=== PATIENT | female | born 1945 | race Caucasian/White ===

== ENCOUNTER 2018-07-20 13:11 | Inpatient (IN) | payer MEDICARE, OTHER ==
[~2018-07-20] VITALS: Ht 167.6 cm; Wt 81.6 kg
--- NOTE | ~2018-07-20 | HEMODYNAMI ---
PATIENT:WENDY RDZ MEDICAL RECORD: [id number] : 43 [facility] [id number] ADMISSION DATE: 07/20/18 Generatedon:07/23/201811:56 Patient name: WENDY RDZ Patient #: [id number] SSN: : 1945 Date of study: 07/23/2018 Page: Of Hemodynamic Procedure Report Patient Data Patient Demographics Procedure consent was obtained First Name: WENDY Gender: Female Last Name: KENDELL : 1945 [facility] Initial: R Age: 73 year(s) Patient #: [id number] Race: Unknown Additional ID: [id number] Contact details [address]: [address] [place] [address] State: [place] City: [place] Zip code: [address] Admission Admission Data Admission Date: 07/20/2018 Admission Time: 14:52 Room #: D.1204 Lab Results Lab Result Date: 07/23/2018 Lab Result Time: 0:00 Biochemistry Name Units Result Min Max BUN mg/dl 21 --(----)-* 7 18 Creatinine mg/dl 0.8 --(-*--)-- 0.6 1.3 CBC Name Units Result Min Max Hemoglobin g/dl 14.3 --(*---)-- 13.5 17.5 Procedure Procedure Types Cath Procedure Diagnostic Procedure [facility] w/Coronaries FFR/IVUS FFR Initial Procedure Description Procedure Date Procedure Date: 07/23/2018 Procedure Start Time: 11:40 Procedure End Time: 11:54 Procedure Staff Name Function Ronaldo Fernandes MD Performing Physician Alisa Bullock RT Monitor Marquita Serrato RT Scrub Ludmila Stoddard RN Nurse Pascual Diaz RT Monitor Procedure Data Cath Procedure Fluoroscopy Diagnostic fluoroscopy Total fluoroscopy Time: 2.7 time: 2.7 min min Diagnostic fluoroscopy Total fluoroscopy dose: 338 dose: 338 mGy mGy Contrast Material Contrast Material Type Amount (ml) Isovue 300 42 Entry Location Entry Primary Successful Side Size Upsize Upsize Entry Closure Garza ccessful Closure Location (Fr) 1 (Fr) 2 (Fr) Remarks Device Remarks Radial Right 6 Fr Mechanical artery Short Compression Diagnostic catheters Device Type Used For End Catheter Placement DIAGNOSTIC Medical Lake 110cm 5 LV Angiography Fr catheter ([id number]) Procedure Complications No complications Procedure Medications Medication Administration Route Dosage 0.9% NaCl I.V. 100 ml/hr Oxygen etCO2 Nasal cannula 2 l/min Lidocaine 2% added to field 20 Heparin Flush Bag added to field 2 bags (1000units/500ml NS) Radial Cocktail added to field 1 syringe (Verapomil 2mg/Nitro 400mcg/Heparin 1500units) Versed I.V. 2 mg Fentanyl I.V. 50 mcg Hemodynamics Rest HGB: 14.3 (g/dl) Snapshots Pre Cath Intra NCS Post Cath Vital Signs Time Heart Resp SPO2 etCO2 NIBP (mmHg) Rhythm Pain Sedation Rate (ipm) (%) (mmHg) Status Level (bpm) 11:24:51 78 15 96 14.2 162/67(112) NSR 0 (11) 10(A) , No pain 11:29:09 76 14 98 18.8 151/72(120) NSR 0 (11) 10(A) , No pain 11:33:27 72 11 97 19.5 148/63(98) NSR 0 (11) 9(A) , No pain 11:37:48 73 11 94 26.2 132/59(88) NSR 0 (11) 9(A) , No pain 11:42:04 71 13 95 30 137/65(100) NSR 0 (11) 9(A) , No pain 11:46:24 71 14 93 27 110/47(80) NSR 0 (11) 9(A) , No pain 11:50:38 73 41 94 18.8 123/50(83) NSR 0 (11) 10(A) , No pain Medications Time Medication Route Dose Verified Delivered Reason Notes E ffectiveness by by 11:23:23 0.9% NaCl I.V. 100 Ronaldo Terrya used for ml/hr Dena Stoddard miter operator 11:23:30 Oxygen etCO2 2 l/min Ronaldo Terrya used for Nasal Dena Stoddard procedure cannula RN 11:23:35 Lidocaine 2% added 20ml Ronaldo Ferrerrey for local to vial Dena Fernandes MD anesthetic field 11:23:40 Heparin Flush added 2 bags Ronaldo Higgins used for Bag to Dena Fernandes MD procedure (1000units/500ml field NS) 11:32:19 Radial Cocktail added 1 Ronaldo Higgins used for (Verapomil to syringe Dena Fernandes MD procedure 2mg/Nitro field 400mcg/Heparin 1500units) 11:32:22 Versed I.V. 2 mg Ronaldo Keys for Dena Stoddard sedation RN 11:32:27 Fentanyl I.V. 50 mcg Ronaldo Keys for Dena Stoddard sedation floor coverings installer Log Time Note 11:00:21 Marquita Serrato RT(R) sent for patient. Start room use. 11:16:30 Time tracking: Regular hours (M-F 7:00 - 5:00) 11:16:34 Plan of Care:Hemodynamics will remain stable., Cardiac rhythm will remain stable., Comfort level will be maintained., Respiratory function will remain adequate., Patient/ family verbilizes understanding of procedure., Procedure tolerated without complication., Recovers from procedure without complications.. 11:16:44 Patient received from Pre/Post Procedure Room to CCL 2 Alert and oriented. Tansferred to table in Supine position. 11:16:45 Warm blankets applied, and juan miguel hugger turned on for patient comfort. 11:16:45 Correct patient and procedure confirmed by team. 11:16:47 Signed procedure consent form obtained from patient. 11:16:48 ECG and BP/O2 sat monitors applied to patient. 11:23:07 Vital chart was started 11:23:08 Baseline sample Acquired. 11:23:15 Rhythm: sinus rhythm 11:23:17 Full Disclosure recording started 11:23:21 H&P Date Dictated: 07/23/2018 Within 30 days and on chart., H&P Addendum completed by physician on day of procedure. (MUST COMPLETE FOR ALL OUTPATIENTS). 11:23:23 0.9% NaCl 100 ml/hr I.V. was administered by Ludmila Stoddard RN; used for procedure; 11:23:26 Pre-procedure instructions explained to patient. 11:23:27 Pre-op teaching completed and patient verbalized understanding. 11:23:28 Family in waiting room. 11:23:30 Oxygen 2 l/min etCO2 Nasal cannula was administered by Ludmila Stoddard RN; used for procedure; 11:23:30 Patient NPO since Midnight. 11:23:32 Is the patient allergic to Iodine/contrast media? No. 11:23:33 Was the patient premedicated? No 11:23:34 Is patient on blood thinner?Yes 11:23:35 Lidocaine 2% 20ml vial added to field was administered by Ronaldo Fernandes MD; for local anesthetic; 11::36 ACC The patient was administered the following blood thiners within the last 24 hours: ACCPlavix 11:23:38 Patient diabetic? No. 11:23:40 Heparin Flush Bag (1000units/500ml NS) 2 bags added to field was administered by Ronaldo Fernandes MD; used for procedure; 11::40 Previous problem with sedation/anesthesia? No ? 11:23:42 Snore? Yes 11:23:43 Sleep apnea? No 11:23:50 Deviated septum? No 11:23:51 Opens mouth fully? Yes 11:23:51 Sticks out tongue? Yes 11:23:57 Airway obstruction? Yes copd asthma 11:24:00 Dentures? No ? 11:24:04 Pre procedure: right dorsailis pedis pulse 2+ Normal; easily identifiable; not easily obliterated 11:24:06 Pre procedure: left dorsailis pedis pulse 2+ Normal; easily identifiable; not easily obliterated 11:24:08 Patient pain scale 0/10 ?. 11:24:44 IV patent on arrival in left forearm with 0.9% NaCl at [facility]. 11:24:47 Lab results completed and on chart. 11:24:53 Right Radial & Right Groin area was prepped with chlora-prep and draped in sterile fashion 11::54 Alarms reviewed by R. N. ::54 Sharps counted by scrub and verified by R.N. 11::34 Lab Result : Hemoglobin 14.3 g/dl ::34 Lab Result : Creatinine 0.8 mg/dl ::34 Lab Result : BUN 21 mg/dl 11::36 Physician arrived ::36 --------ALL STOP TIME OUT------ 11:31:37 Final Timeout: patient, procedure, and site verified with staff and physician. All members of the team are in agreement. 11:31:43 Right Radial & Right Groin site verified by team. 11:31:51 Maximum allowable Isovue 300 dose 300ml. Physician notified. (300ml for normal creatinines. For patients with creatinine of 1.7 or higher multiply weight(kg) x 5 divided by creatinine.) 11:32:02 Fire Safety Assessment: A--An alcohol-based skin anteseptic being used preoperatively., C--Open oxygen or nitrous oxide is being used., D--An ESU, laser, or fiber-optic light is being used. 11:32:19 Radial Cocktail (Verapomil 2mg/Nitro 400mcg/Heparin 1500units) 1 syringe added to field was administered by Ronaldo Fernandes MD; used for procedure; 11:32:22 Versed 2 mg I.V. was administered by Ludmila Stoddard RN; for sedation; 11:32:27 Fentanyl 50 mcg I.V. was administered by Ludmila Stoddard RN; for sedation; 11:33:14 Physical assessment completed. ASA score P 2 - A patient with mild systemic disease as per Ronaldo Fernandes MD. 11:33:18 Sedation plan: IV Moderate Sedation Medication:Versed, Fentanyl 11:33:46 Use device set Radial Dx or PCI 11:33:47 ACIST Syringe (28415) opened to sterile field. 11:33:47 Medline Cath Pack ([id number]) opened to sterile field. 11:33:48 Bag Decanter () opened to sterile field. 11:33:48 DIAGNOSTIC WIRE .035 260cm J wire (531749) opened to sterile field. 11:33:49 ACIST Hand Control (84701) opened to sterile field. 11:33:49 ACIST Manifold (95733) opened to sterile field. 11:33:50 Tegaderm 4 x 4 (1626W) opened to sterile field. 11:33:51 MBrace Wrist Support ([id number]) opened to sterile field. 11:33:52 SHEATH 6FR Slender (801060) opened to sterile field. 11:37:02 Diagnostic Cath status Urgent 11:37:44 Procedure started. 11:40:43 Local anesthetic to right radial artery with Lidocaine 2% by Ronaldo Fernandes MD.INITIAL ACCESS ONLY 11:41:32 A 6 Fr Short sheath was inserted into the Right Radial artery 11:41:35 Zero performed for pressure channel P1 11:42:46 A DIAGNOSTIC Medical Lake 110cm 5 Fr catheter (429170) was advanced over the wire and used for LV Angiography. 11:43:09 LV angiography performed. 11:43:11 LV gram done using CORDOVA 11:43:13 LV hemodynamics recorded. 11:43:25 EF : 55 % 11:43:40 RCA angiography performed. 11:44:00 LCA angiography performed. 11:46:32 GUIDE 6FR EBU 3.0 catheter ([id number]) opened to sterile field. 11:46:33 Page Verrata Plus pressure wire (06645T) opened to sterile field. 11:46:33 CHOICE PT Extra Support 182cm wire ([id number]) opened to sterile field. 11:46:34 INFLATOR Merit BasixCompak (GM5870) opened to sterile field. 11:47:10 Catheter exchanged over wire. 11:47:17 6 Fr EBU 3.0 guide catheter was inserted over the wire 11:47:22 FFR wire advanced. 11:47:32 IFR wire advanced. 11:49:51 IFR READING OF LAD 1.02 11:51:11 Wire removed. 11:51:14 Guide catheter removed. 11:51:48 Sheath removed intact; hemostasis achieved with Mechanical Compression to the Right Radial artery. 11:51:50 Procedure ended.(Physican Out) 11:52:01 Fluoroscopy time 02.70 minutes. 11:52:05 Fluoroscopy dose: 338 mGy 11:52:05 Flurop Dose total: 338 11:52:17 Contrast amount:Isovue 300 42ml. 11:52:18 Sharps counted by scrub and verified by R.N. 11:52:22 TR band inflated with 10cc of air. 11:52:39 Post-op/insertion site Right Radial artery dressed using a Mepilex dressing. 11:52:47 Post right radial artery:stable 11:52:54 Post procedure rhythm: unchanged. 11:52:56 Post procedure instruction explained to patient.Patient verbalizes understanding. 11:53:00 Patient needs reinforcement of post procedure teaching. 11:53:01 Procedure and supply charges have been captured, reviewed, submitted and are correct. 11:53:26 Procedure type changed to Cath procedure, Diagnostic procedure, LHC, LHC w/Coronaries, FFR/IVUS, FFR Initial 11:53:46 TR BAND Standard ([id number]) opened to sterile field. 11:53:54 Procedure Complication : No complications 11:53:56 Vital chart was stopped 11:53:56 See physician's report for complete and final results. 11:54:17 Report given to Other. 11:54:23 Patient transfered to Other with Bed. 11:54:47 MED 3 11:54:50 Procedure ended. 11:54:50 Full Disclosure recording stopped 11:54:55 End room use (Document Last) Device Usage Item Name Manufacture Quantity Catalog Number Hospital Part Current [facility] Lot# / Charge Number Stock Stock Serial# Code ACIST Acist 1 81022 [id number] 702257 319052 20 Syringe Medical (56755) Systems Inc Medline Medline 1 [id number] 457269 33689 854049 5 Cath Pack ([id number]) Bag Microtek 1 2001S 904708 82887 061694 5 Decanter Medical Inc. (2001S) DIAGNOSTIC [place] 1 471747 631473 016860 749429 30 WIRE .035 260cm J wire (164299) ACIST Hand Acist 1 29614 375783 846424 587061 5 Control Medical (41901) Systems Inc ACIST Acist 1 78899 436292 991130 883551 5 Manifold Medical (20720) Systems Inc Tegaderm 4 3M 1 1626W 228859 340785 741785 5 x 4 (1626W) MBrace Advanced 1 140-0250-00 229798 78155 765276 5 Wrist Vascular Support Dynamics ([id number]) SHEATH 6FR Terumo 1 [id number] 968546 716065 663778 5 Slender (80-1060) DIAGNOSTIC Terumo 1 40-9223 886065 779772 408670 5 Medical Lake 110cm 5 Fr catheter (882466) GUIDE 6FR Medtronic 1 [id number] 120906 25457 930820 0 EBU 3.0 catheter ([id number]) Page Page 1 69069B 065208 166681942 420509 5 Verrata Plus pressure wire (40156F) CHOICE PT [place] 1 [id number] 213720 060356 336992 5 Extra Scientific Support 182cm wire ([id number]) INFLATOR Merit 1 VN9086 478807 217306 294917 15 [facility] Medical BasixCompak (YT4883) TR BAND Terumo 1 [id number] 917634 380669 063408 40 Standard ([id number]) Signature Audit [place] Stage Time Signature Unsigned Intra-Procedure 07/23/2018 Pascaul Diaz RT(R) 11:55:57 AM Signatures Monitor : Alisa Bullock RT Signature : Date : Time : Monitor : Pascual Diaz RT Signature : Date : Time : [place] [address] [address] [address]
[2018-07-20] MEDS ORDERED: PROVENTIL/2.5 MG/3 M INH (13:22)
[2018-07-20 14:00] LABS: BASOPHILS 0.5 % (0-2); EOSINOPHILS 4.1 % (0-7); HEMATOCRIT 44.6 % (36.0-48.0); IMMATURE GRANULOCYTES 0.2 % (0-5); LYMPHOCYTES 16.3 % (15-50); MCH 32.5 pg (26.0-34.0); MCHC 33.6 g/dL (31.0-37.0); MCV 96.5 fL (80.0-100.0); MEAN PLATELET VOLUME 9.4 fL (7.4-10.4); MONOCYTES 6.2 % (2-11); NEUTROPHILS 72.7 % (40-80); PLATELET COUNT 223 10x3/uL (130-400); RBC 4.62 10x6/uL (4.00-5.40); RDW 14.2 % (11.5-14.5); WBC 10.7 10x3/uL (4.8-10.8)
[2018-07-20 14:15] LABS: ALBUMIN 3.8 g/dL (3.4-5.0); ANION GAP 14.3 mmol/L (8-16); BILIRUBIN - TOTAL 0.37 mg/dL (0.2-1.3); CALCIUM 8.8 mg/dL (8.5-10.1); CARBON DIOXIDE 26.7 mmol/L (21.0-32.0); CREATININE - SERUM 0.9 mg/dL (0.6-1.3); PROTEIN - SERUM 7.3 g/dL (6.4-8.2)
--- NOTE | 2018-07-20 16:29 | MORECARE ---
CASE MANAGEMENT DISCHARGE SUMMARY PATIENT: WENDY COREY UNIT: [id number] ADM DATE: 07/20/18 AGE: 73 : 44 SEX: F ROOM/BED: D.1204 AUTHOR: PIYUSH RIOJAS PHYSICIAN: REFERRING PHYSICIAN: JEANMARIE DAUGHERTY MD DATE OF SERVICE: 07/20/18 Discharge Plan Patient Name: EWNDY COREY Facility: [facility]:[place] : 1945 Planned Disposition: Home Anticipated Discharge Date: 07/23/18 Discharge Date: Expected LOS: 3 Initial Reviewer: [email or web address] Initial Review Date: 07/20/2018 Generated: 07/20/18 5:29 pm DCPIA - Discharge Planning Initial Assessment Updated by [email or web address]: Mely Avila on 07/20/18 4:28 pm * Is the patient Alert and Oriented? Yes * How many steps to enter\exit or inside your home? * PCP Dr. Anaya * Pharmacy [facility] in [place] * Preadmission Environment Home with Family * ADLs Independent * Equipment Cane Nebulizer Oxygen * Other Equipment [employer] is O2 supplier. Patient also has portable oxygen. This was set up by [email or web address] on 07/19/18. * List name and contact numbers for known caregivers / representatives who currently or will assist patient after discharge: Delfin Corey - spouse - [phone] * Verbal permission to speak to the caregivers and representatives has been obtained from the patient. Yes * Community resources currently utilized None * Additional services required to return to the preadmission environment? No * Can the patient safely return to the preadmission environment? Yes * Has this patient been hospitalized within the prior 30 days at any hospital? No Patient Name: WENDY COREY Page 98549 at 1629 All edits/amendments must be made on the electronic document DICTATION DATE: 07/20/181627 AUTOMOBILE SALESMAN: CORRIE 07/20/181627 RPT#: [id number] DC DATE: STATUS: ADM IN [facility] [address] [place] [address] END OF REPORT
--- NOTE | 2018-07-20 16:39 | MORECARE ---
CASE MANAGEMENT DISCHARGE SUMMARY PATIENT: WENDY COREY UNIT: [id number] ADM DATE: 07/20/18 AGE: 73 : 44 SEX: F ROOM/BED: D.1204 AUTHOR: BEULAH,DOC PHYSICIAN: REFERRING PHYSICIAN: JEANMARIE DAUGHERTY MD DATE OF SERVICE: 07/20/18 Discharge Plan Patient Name: WENDY COREY Facility: [facility]:[place] : 1945 Planned Disposition: Home Anticipated Discharge Date: 07/23/18 Discharge Date: Expected LOS: 3 Initial Reviewer: [email or web address] Initial Review Date: 07/20/2018 Generated: 07/20/18 5:39 pm DCP- Discharge Planning Updated by [email or web address]: Mely Avila on 07/20/18 3:[address] Patient Name: WENDY COREY Admission Status: ER Accout number: [id number] Admission Date: 07-20-2018 : 1945 Admission Diagnosis: Attending: JEANMARIE DAUGHERTY Current LOS: 1 Anticipated DC Date: 07-23-2018 Planned Disposition: Home Primary Insurance: MEDICARE A & B Discharge Planning Comments: CM met with patient to complete initial dc planning assessment. CM educated patient on the CM role and verbal consent given by patient to complete assessment. Patient lives at home with her . At discharge patient plans to return home and feels this is a safe discharge. CM discussed availability of home health, rehab services, and medical equipment. Patient denied known discharge needs at this time. CM will continue to follow and will assist as needed with dc plans/needs. Manufacturing Job Titles: Mely Avila RN, [facility] DCPIA - Discharge Planning Initial Assessment Updated by [email or web address]: Mely Avila on 07/20/18 4:28 pm * Is the patient Alert and Oriented? Yes * How many steps to enter\exit or inside your home? * PCP Dr. Anaya * Pharmacy [facility] in [place] * Preadmission Environment Home with Family * ADLs Independent * Equipment Cane Nebulizer Oxygen * Other Equipment [employer] is O2 supplier. Patient also has portable oxygen. This was set up by [employer] on 07/19/18. * List name and contact numbers for known caregivers / representatives who currently or will assist patient after discharge: Delfin Corey - spouse - [phone] * Verbal permission to speak to the caregivers and representatives has been obtained from the patient. Yes * Community resources currently utilized None * Additional services required to return to the preadmission environment? No * Can the patient safely return to the preadmission environment? Yes * Has this patient been hospitalized within the prior 30 days at any hospital? No Last DP export: 07/20/18 3:29 p Patient Name: WENDY COREY Page 59656 at 1639 All edits/amendments must be made on the electronic document DICTATION DATE: 07/20/181637 INSTRUMENTATION CONTROLS ENGINEER: CORRIE 07/20/181637 RPT#: [id number] DC DATE: STATUS: ADM IN [facility] [address] [place] [address] END OF REPORT
[2018-07-20 16:42] VITALS: BP 129/69; BMI 29.1
--- NOTE | 2018-07-20 16:47 | MORECARE ---
CASE MANAGEMENT DISCHARGE SUMMARY PATIENT: WENDY COREY UNIT: [id number] ADM DATE: 07/20/18 AGE: 73 : 44 SEX: F ROOM/BED: D.1204 AUTHOR: BEULAH,DOC PHYSICIAN: REFERRING PHYSICIAN: JEANMARIE DAUGHERTY MD DATE OF SERVICE: 07/20/18 Discharge Plan Patient Name: WENDY COREY Facility: [facility]:[place] : 1945 Planned Disposition: Home Anticipated Discharge Date: 07/23/18 Discharge Date: Expected LOS: 3 Initial Reviewer: [email or web address] Initial Review Date: 07/20/2018 Generated: 07/20/18 5:47 pm DCP- Discharge Planning Updated by [email or web address]: Mely Avila on 07/20/18 3:[address] Patient Name: WENDY COREY Admission Status: ER Accout number: [id number] Admission Date: 07-20-2018 : 1945 Admission Diagnosis: Attending: JEANMARIE DAUGHERTY Current LOS: 1 Anticipated DC Date: 07-23-2018 Planned Disposition: Home Primary Insurance: MEDICARE A & B Discharge Planning Comments: CM met with patient to complete initial dc planning assessment. CM educated patient on the CM role and verbal consent given by patient to complete assessment. Patient lives at home with her . At discharge patient plans to return home and feels this is a safe discharge. CM discussed availability of home health, rehab services, and medical equipment. Patient denied known discharge needs at this time. CM will continue to follow and will assist as needed with dc plans/needs. Family Assistant: Mely Avila RN, [facility] DCPIA - Discharge Planning Initial Assessment Updated by [email or web address]: Mely Avila on 07/20/18 4:28 pm * Is the patient Alert and Oriented? Yes * How many steps to enter\exit or inside your home? * PCP Dr. Anaya * Pharmacy [facility] in [place] * Preadmission Environment Home with Family * ADLs Independent * Equipment Cane Nebulizer Oxygen * Other Equipment [employer] is O2 supplier. Patient also has portable oxygen. This was set up by [employer] on 07/19/18. * List name and contact numbers for known caregivers / representatives who currently or will assist patient after discharge: Delfin Corey - spouse - [phone] * Verbal permission to speak to the caregivers and representatives has been obtained from the patient. Yes * Community resources currently utilized None * Additional services required to return to the preadmission environment? No * Can the patient safely return to the preadmission environment? Yes * Has this patient been hospitalized within the prior 30 days at any hospital? No Last DP export: 07/20/18 3:39 p Patient Name: WENDY COREY Page 15153 at 1647 All edits/amendments must be made on the electronic document DICTATION DATE: 07/20/181646 TELEPHONE DIRECTORY DISTRIBUTOR DRIVER: CORRIE 07/20/181646 RPT#: [id number] DC DATE: STATUS: ADM IN [facility] [address] [place] [address] END OF REPORT
--- NOTE | 2018-07-20 20:04 | NUR ---
AAOX4. EYES CLOSED WHEN ENTERING ROOM BUT RESPONDS TO VERBAL STIMULI. DENIES PAIN. WEARING NASAL CANNULA AND RECEIVING 3 L O2. CHEST AND BREATHING SYMMETRICAL. BREATH SOUNDS PRESENT WITH INSPIRATORY WHEEZES BILATERALLY. PT DENIES URGE TO COUGH BUT EDUCATED AND ENCOURAGED PATIENT TO COUGH TO CLEAR AND POSSIBLE SECRETIONS. PT VERBALIZED UNDERSTANDING. HOB IS ELEVATED TO A 45 DEGREE ANGLE. STATES THAT SHE IS TIRED AND HOPING TO GET SOME REST. REVIEWED UPCOMING MEDICATIONS WITH PT. LEFT WRIST IV IS SALINE LOCKED. NO REDNESS AND NO TENDERNESS REPORTED. CALL LIGHT IN REACH.
[2018-07-20 20:27] VITALS: BP 151/69
--- NOTE | 2018-07-20 21:23 | NUR ---
PT RESTING WHEN ENTERING THE ROOM. AROUSES TO VERBAL STIMULI. ADMINISTERED MEDICATION ORDERED. TOLERATED WELL. HELPED REPOSITION PT. DENIES FURTHER NEEDS. CALL LIGHT ACROSS CHEST. PT STATES SHE IS READY TO GET SOME REST. REPORTS THAT SHE HASNT BEEN ABLE TO SLEEP FOR SEVERAL NIGHTS.
[2018-07-21 01:10] VITALS: BP 143/65
--- NOTE | 2018-07-21 04:10 | NUR ---
I have reviewed this patient and I concur with the Shift Assessment completed by the Licensed Practical Nurse today this shift.
[2018-07-21 05:28] VITALS: BP 136/54
[2018-07-21 07:49] VITALS: BP 138/57
--- NOTE | 2018-07-21 07:52 | NUR ---
RESUMING PT CARE, PT SITTING UP IN CHAIR AT BEDSIDE ALERT AND ORIENTED. CALL LIGHT IS IN REACH. WILL CONTINUE TO MONITOR AND FOLLOW PLAN OF CARE.
[2018-07-21 10:11] VITALS: BMI 29.0
[2018-07-21 11:00] VITALS: Ht 167.6 cm; Wt 81.6 kg
[2018-07-21 11:21] VITALS: BP 127/68
[2018-07-21 11:39] LABS: CREATINE KINASE 119 UL (21-215); TROPONIN-I < 0.017 ng/mL (0.000-0.060)
--- NOTE | 2018-07-21 14:48 | NUR ---
DR. DAUGHERTY BY TO SEE PATIENT.
[2018-07-21 15:38] VITALS: BP 128/53
[2018-07-21 17:58] LABS: CKMB 4.1 U/L (0.0-3.6); CREATINE KINASE 130 UL (21-215); TROPONIN-I 0.046 ng/mL (0.000-0.060)
--- NOTE | 2018-07-21 19:10 | NUR ---
ALERT AND ORIENTED. VITALS ASSESSED AND STABLE. NS INFUSING AT 75 TO THE RIGHT AC. NO REDNESS OR TENDERNESS NOTED. PT REFUSES TO WEAR GOWN. LEFT HEEL AND FOOT WITH ESCHAR NOTED. RATES PAIN 4/10. DENIES NEEDS FOR PAIN MEDICINE AT THIS TIME. CALL LIGHT IN HAND.
--- NOTE | 2018-07-21 19:15 | NUR ---
PT ALERT AND TALKING ON PHONE WHEN ENTERING ROOM. PT VITALS ASSESSED AND STABLE. WEARING 3L NC AT THIS TIME. LEFT FOREARM SALINE LOCKED. DENIES PAIN. HAS SEVERAL QUESTIONS ABOUT CONDITION. INSTRUCTED PATIENT TO SPEAK TO DOCTOR ABOUT QUESTIONS OR CONCERNS.
[2018-07-21 20:01] VITALS: BP 131/53
--- NOTE | 2018-07-21 20:41 | NUR ---
PROVIDED PT WITH SPUTUM CULTURE DEVICE AND EDUCATION ON HOW TO USE. PT PROVIDES RETURN DEMONSTRATION. STATES "I DONT KNOW IF I WILL BE ABLE TO GET ENOUGH UP." ISNTRUCTED PT TO DO AN EFFECTIVE COUGHING IN HOPES TO OBTAIN A SAMPLE. PT VERBALIZES UNDERSTANDING.
[2018-07-21 23:35] LABS: CKMB 4.9 U/L (0.0-3.6); CREATINE KINASE 151 UL (21-215)
[2018-07-21 23:37] LABS: TROPONIN-I 0.084 ng/mL (0.000-0.060)
--- NOTE | 2018-07-21 23:53 | NUR ---
RECEIVED ELEVATED TROPONIN RESULT. CALLED DR. DAUGHERTY. LEFT MESSAGE.
[2018-07-22] VITALS: BP 127/54
[2018-07-22 00:50] VITALS: BP 127/54
--- NOTE | 2018-07-22 01:17 | NUR ---
I have reviewed this patient and I concur with the Shift Assessment completed by the Licensed Practical Nurse today this shift.
--- NOTE | 2018-07-22 04:47 | NUR ---
IV RESTIED TO THE RIGHT FOREARM. 22G. ONE ATTEMPT.
[2018-07-22 05:00] VITALS: BP 123/46
[2018-07-22 06:22] LABS: BASOPHILS 0.2 % (0-2); EOSINOPHILS 2.7 % (0-7); HEMATOCRIT 41.7 % (36.0-48.0); HEMOGLOBIN 14.1 g/dL (12-16); IMMATURE GRANULOCYTES 0.3 % (0-5); MCH 32.3 pg (26.0-34.0); MCHC 33.8 g/dL (31.0-37.0); MCV 95.4 fL (80.0-100.0); MEAN PLATELET VOLUME 9.8 fL (7.4-10.4); MONOCYTES 8.9 % (2-11); NEUTROPHILS 63.9 % (40-80); PLATELET COUNT 233 10x3/uL (130-400); RBC 4.37 10x6/uL (4.00-5.40); RDW 14.4 % (11.5-14.5); WBC 11.1 10x3/uL (4.8-10.8)
[2018-07-22 06:31] LABS: CALC OSMOLALITY 277 mosm/kg (275-300); CALCIUM 8.4 mg/dL (8.5-10.1); CARBON DIOXIDE 23.2 mmol/L (21.0-32.0); CHLORIDE - SERUM 102 mmol/L (98-107); CREATININE - SERUM 0.7 mg/dL (0.6-1.3); GLUCOSE 111 mg/dL (74-106); POTASSIUM - SERUM 4.3 mmol/L (3.5-5.1); SODIUM 137 mmol/L (136-145); UREA NITROGEN 20 mg/dL (7-18); eGFR NON AFRICAN AMERICAN 87 mL/min (90-120)
[2018-07-22 08:09] VITALS: BP 145/55
--- NOTE | 2018-07-22 12:26 | NUR ---
PATIENT ALERT AND ORIENTED THIS MORNING. ATE 100% OF BREAKFAST. NO COMPLAINTS OF PAIN OR DISCOMFORT. SALINE LOCK TO RIGHT FOREARM PATENT. ON 3L OF O2 PER NC. WILL CONTINUE TO MONITOR.CALL LIGHT WITHIN REACH.
[2018-07-22 17:38] VITALS: BP 163/69
--- NOTE | 2018-07-22 18:54 | NUR ---
PATIENT RESTED ALL AFTERNOON. DR. CHAIREZ AND DR. PERALTA VISITED THIS AFTERNOON. NEW ORDERS NOTED. NO COMPLAINTS OF PAIN OR DISCOMFORT. WILL CONTINUE TO MONITOR. CALL LIGHT WITHIN REACH.
--- NOTE | 2018-07-22 19:56 | NUR ---
REST IN BED, READ BOOK.
[2018-07-22 20:51] VITALS: BP 167/67
--- NOTE | 2018-07-22 22:15 | NUR ---
ROUNDING ON THE PATIENT, INTRODUCTIONS MADE, CALL LIGHT IN REACH.
--- NOTE | 2018-07-22 22:15 | NUR ---
ROUNDING ON THE PATIENT, SHE IS REPORTING PAIN DESPITE RECENT DILAUDID, FAMILY AT THE BEDSIDE. CALL LIGHT IN REACH. JOSE GUADALUPE MILLARD NOTIFIED OF THE PATIENTS PAIN LEVEL
[2018-07-23 01:00] VITALS: BP 156/70
[2018-07-23 05:46] VITALS: BP 146/59
[2018-07-23 05:55] LABS: ANION GAP 12.8 mmol/L (8-16); BASOPHILS 0 % (0-2); CALCIUM 8.8 mg/dL (8.5-10.1); CARBON DIOXIDE 28.4 mmol/L (21.0-32.0); CREATININE - SERUM 0.8 mg/dL (0.6-1.3); EOSINOPHILS 0 % (0-7); HEMATOCRIT 42.3 % (36.0-48.0); HEMOGLOBIN 14.3 g/dL (12-16); IMMATURE GRANULOCYTES 0.3 % (0-5); LYMPHOCYTES 7.1 % (15-50); MCH 32.4 pg (26.0-34.0); MCHC 33.8 g/dL (31.0-37.0); MCV 95.9 fL (80.0-100.0); MONOCYTES 3.5 % (2-11); NEUTROPHILS 89.1 % (40-80); PLATELET COUNT 234 10x3/uL (130-400); POTASSIUM - SERUM 4.2 mmol/L (3.5-5.1); RBC 4.41 10x6/uL (4.00-5.40); RDW 14.3 % (11.5-14.5); WBC 8.9 10x3/uL (4.8-10.8)
--- NOTE | 2018-07-23 07:40 | NUR ---
REPORT RECEIEVED. WILL CONTINUE WITH POC. PT CURRENTLY LYING SEMI FOWLERS. CALL LIGHT W/I REACH. PT IS AAO AND UP AD DOROTHEA. RR EVEN AND UNLABORED ON 3L 02. R.FOR PIV IS SALINE LOCKED. PT IS NPO FOR HEART CATH. R.FOR PIV IS SALINE LOCKED. PT DENIES ANY NEEDS AT THIS TIME. NO S/S OF DISTRESS NOTED. WILL CTM.
[2018-07-23 08:00] VITALS: BP 140/55
--- NOTE | 2018-07-23 10:43 | NUR ---
PREVIOUS PIV INFILTRATED. REMOVED PIV WITH CATHETER TIP FULLY INTACT. NEW PIV INITIATED TO THE RIGHT AC. 22GA X1 ATTEMPT. FLUSHED WITH 10CC TO CONFIRM PATENCY. PT TOLERATED WELL. DRILLER'S OFFSIDER CALLED TO PREOP. PREOP MEDICATIONS ADMINISTERED. NS CURRENTLY INFUSING @KVO. WILL CTM.
[2018-07-23 12:00] VITALS: BP 136/67
--- NOTE | 2018-07-23 12:30 | NUR ---
RECEIVED PT FROM COMFORT ADVISOR. RIGHT RADIAL SITE IS C/D/I WITH NO S/S OF HEMATOMA PRESENT. NS INFUSING @100ML/HR VIA R.AC PIV. RR EVEN AND UNLABORED ON 3L 02. PERIPHERAL PULSES EVEN BILATERAL. WILL CTM.
[2018-07-23 16:00] VITALS: BP 127/40
--- NOTE | 2018-07-23 16:19 | NUR ---
ALERT AND ORIENTED X4. SITTING UP ON SIDE OF BED COUGHING WHILE SAYING, "I'M HAVING AN ALLERGIC REACTION, MY THROAT IS CLOSING UP. I CAN'T SWALLOW." NOTIFY VALERIA IGNACIO. 50mg BENADRYL IV ORDERED VIA TELEPHONE. CHEST XRAY AND SWALLOW EVAL ORDERED VIA TELEPHONE PER VALERIA IGNACIO. JOSE GUADALUPE GREGORY REMAINS IN ROOM.
--- NOTE | 2018-07-23 16:39 | NUR ---
REMOVED TR BAND. CATH SITE IS C/D/I WITH NO S/S OF HEMATOMA PRESENT. WILL CTM.
[2018-07-23 19:00] VITALS: BP 133/61
--- NOTE | 2018-07-23 19:30 | NUR ---
PATIENT IS RESTING IN HER BED. SHE DENIES ANY NEEDS AT THIS TIME. BED IS DOWN LOW WITH SIDE RAILS UP X2. CALL LIGHT IS IN REACH.
[2018-07-24 01:20] VITALS: BP 109/61
[2018-07-24 05:15] VITALS: BP 102/62
[2018-07-24 06:58] LABS: BASOPHILS 0 % (0-2); EOSINOPHILS 0 % (0-7); HEMATOCRIT 42.3 % (36.0-48.0); HEMOGLOBIN 13.9 g/dL (12-16); IMMATURE GRANULOCYTES 0.4 % (0-5); LYMPHOCYTES 9.9 % (15-50); MCH 31.7 pg (26.0-34.0); MCHC 32.9 g/dL (31.0-37.0); MCV 96.4 fL (80.0-100.0); MONOCYTES 4.7 % (2-11); PLATELET COUNT 230 10x3/uL (130-400); RBC 4.39 10x6/uL (4.00-5.40); WBC 8.5 10x3/uL (4.8-10.8)
[2018-07-24 07:09] LABS: ANION GAP 13.5 mmol/L (8-16); CALCIUM 8.5 mg/dL (8.5-10.1); CREATININE - SERUM 0.8 mg/dL (0.6-1.3); POTASSIUM - SERUM 4.5 mmol/L (3.5-5.1)
[2018-07-24 08:31] VITALS: BP 144/61
[2018-07-24 09:13] LABS: IMMUNOGLOBULIN A 255 mg/dL (64-422)
[2018-07-24 12:30] VITALS: BP 142/58
--- NOTE | 2018-07-24 14:19 | NUR ---
PT RESTING IN BED. NO SIGNS OF DISTRESS. IV TO RIGHT AC PATENT NO REDNESS OR TENDERNESS. ON 3L NC. DENIES ANY PAIN OR NEED AT THIS TIME. CALL LIGHT IN REACH. BED LOW POSITION. NO FAMILY AT BEDSIDE.
--- NOTE | 2018-07-24 14:58 | MORECARE ---
CASE MANAGEMENT DISCHARGE SUMMARY PATIENT: WENDY COREY UNIT: [id number] ADM DATE: 07/20/18 AGE: 73 : [birth year] SEX: F ROOM/BED: D.1204 AUTHOR: PIYUSH RIOJAS PHYSICIAN: REFERRING PHYSICIAN: JEANMARIE DAUGHERTY MD DATE OF SERVICE: 07/24/18 Discharge Plan Patient Name: WENDY COREY Facility: [facility]:[place] : 1945 Planned Disposition: Home Anticipated Discharge Date: 07/23/18 Discharge Date: Expected LOS: 3 Initial Reviewer: [email or web address] Initial Review Date: 07/20/2018 Generated: 07/24/18 3:58 pm Comments DCP- Discharge Planning Updated by [email or web address]: Mely Avila on 07/24/18 1:[address] Patient Name: WENDY COREY Encounter No: [id number] : 1945 Primary Insurance: MEDICARE A & B Anticipated DC Date: 07-23-2018 Planned Disposition: Home External Planned Provider: : DCP follow-up note: Patient in agreement with discharge plan. No changes to plan. Cm met with patient and she denied dc needs at this time. IMM presented, explained, and signed by patient for discharge. Signed form placed in chart and signed form left with patient. Patient reports her family will be transporting her home. Case management will follow and assist as needed. Mely Avila RN, CCM Appended by Mely Avila on 07/24/2018 14:52 CDT: Verified with the patient that she has a nebulizer at home. DCP- Discharge Planning Updated by [email or web address]: Mely Avila on 07/20/18 3:[address] Patient Name: WENDY COREY Admission Status: ER Accout number: [id number] Admission Date: 07-20-2018 : 1945 Admission Diagnosis: Attending: JEANMARIE DAUGHERTY Current LOS: 1 Anticipated DC Date: 07-23-2018 Planned Disposition: Home Primary Insurance: MEDICARE A & B Discharge Planning Comments: CM met with patient to complete initial dc planning assessment. CM educated patient on the CM role and verbal consent given by patient to complete assessment. Patient lives at home with her . At discharge patient plans to return home and feels this is a safe discharge. CM discussed availability of home health, rehab services, and medical equipment. Patient denied known discharge needs at this time. CM will continue to follow and will assist as needed with dc plans/needs. Cardiology Physician: Mely Avila RN, [facility] DCPIA - Discharge Planning Initial Assessment Updated by [email or web address]: Mely Avila on 07/20/18 4:28 pm * Is the patient Alert and Oriented? Yes * How many steps to enter\exit or inside your home? * PCP Dr. Anaya * Pharmacy [facility] in [place] * Preadmission Environment Home with Family * ADLs Independent * Equipment Cane Nebulizer Oxygen * Other Equipment [employer] is O2 supplier. Patient also has portable oxygen. This was set up by [employer] on 07/19/18. * List name and contact numbers for known caregivers / representatives who currently or will assist patient after discharge: Delfin Corey - spouse - [phone] * Verbal permission to speak to the caregivers and representatives has been obtained from the patient. Yes * Community resources currently utilized None * Additional services required to return to the preadmission environment? No * Can the patient safely return to the preadmission environment? Yes * Has this patient been hospitalized within the prior 30 days at any hospital? No Coverage Notice Reviewer: [id number] - Mely Avila Notice Issued Date-Time: 07/24/2018 13:05 Notice Type: IM Discharge Notice Notice Delivered To: Patient Relationship to Patient: Dyed Raw Stock Blower Feeder Name: Delivery Method: HAND - Hand Delivered Yaneth Days: Prior Verbal Notification: Recipient Understood Notice: Recipient Signature: Med Rec Note Co-signed by Attending: Coverage Notice Comment: Last DP export: 07/20/18 3:47 p Patient Name: WENDY COREY Page 43863 at 1458 All edits/amendments must be made on the electronic document DICTATION DATE: 07/24/181457 FUR WEIGHER: CORRIE 07/24/181457 RPT#: [id number] DC DATE: STATUS: ADM IN [facility] [address] [place] [address] END OF REPORT
[2018-07-24] MEDS ORDERED: IPRAT-ALBUT 0.5-3 ML INH (15:47)
[2018-07-24] MEDS ORDERED: PREDNISONE10 MG PO (15:49)
[2018-07-24] MEDS ORDERED: TRELEGY ELLIPT1 EACH INH (15:49)
[2018-07-24] MEDS ORDERED: OMNICEF300 MG PO (15:50)
[2018-07-24] MEDS ORDERED: DOXYCYCLINE HY100 M2 PO (15:50)
[2018-07-24] MEDS ORDERED: SINGULAIR10 MG PO (15:51)
[2018-07-24] MEDS ORDERED: MUCINEX DM ER1 EAC1 PO (15:51)
[2018-07-24] MEDS ORDERED: FLUTICASONE PRO16 GM NASAL (15:52)
[2018-07-24] MEDS ORDERED: BYSTOLIC5 MG PO (15:53)
[2018-07-24] MEDS ORDERED: TESSALON PERLE100 MG PO (15:55)
[2018-07-24 16:15] VITALS: BP 148/58
--- NOTE | 2018-07-24 16:22 | NUR ---
ALERT AND ORIENTED X4. SITTING UP IN BED. FAMILY AT BEDSIDE. PLANS TO BE DISCHARGED. AGREE WITH COLLISION MECHANIC ASSESSMENT. DENIES ANY NEEDS AT THIS TIME. JOSE GUADALUPE MARTINEZ CONTINUES PLAN OF CARE AND SAFETY PRECAUTIONS.
--- NOTE | 2018-07-24 18:16 | NUR ---
DISCHARGE INSTRUCTIONS GIVEN. SEEMS TO UNDERSTAND INSTRUCTION. IV TIP INTACT. LEFT WITH HOSPITAL STAFF TO GO WITH PERSONAL RIDE.
--- NOTE | 2018-07-25 10:39 | EC ---
PATIENT:WENDY RDZ DATE OF SERVICE: 07/20/18 SEX: F MEDICAL RECORD: [id number] DATE OF : [birth year] LOCATION:D. D.120 AGE OF PATIENT: 73 ADMISSION DATE: 07/20/18 REFERRING PHYSICIAN: INTERPRETING PHYSICIAN: VALERY FERNANDES MD ECHOCARDIOGRAM REPORT ECHO CHARGES 4 ECHO COMPLETE Date: 07/22/18 CLINICAL DIAGNOSIS: CHF/MURMUR/ELEVATED TROPONIN ECHOCARDIOGRAPHIC MEASUREMENTS (adult normal given) AC root (d.<3.7cm) 2.8 cm LV Septum d (<1.2 cm> 1.3 cm Valve Excursion 1.7 cm LV Septum (systole) 1.8 cm Left Atria (s.<4.0cm> 3.0 cm LVPW d(<1.2cm) 1.2 cm RV (d.<2.3cm) 1.9 cm LVPW (sytole) 1.8 cm LV diastole(<5.6CM) 4.9 cm MV E-F(>70mm/sec) cm LV systole 2.8 cm LVOT Diameter 1.5 cm MV exc.(>10mm) cm Est.ejection fraction (50-75%) % DOPPLER: LVIT cm/sec A 192 cm/sec E 130 cm/sec LA cm/sec RVSP 50.0 mmHg LVOT 538.0cm/sec AOP1/2T m/s Asc. Ao 385.0cm/sec RVOT 96.0 cm/sec RA cm/sec PA 84.0 cm/sec AV Gradient Peak 59.3 mmHg AV Mean 39.0 mmHg AV Area 2.8 cm MV Gradient Peak 18.4 mmHg MV Mean 7.2 mmHg MV Area cm COMMENTS: Lan Specialist: Bassam GARAYOE Orthotic/Prosthetic Practitioner: 1 Dr. Fernandes TAPE# PACS Pericardial Effusion N DATE OF SERVICE: 07/22/2018 FINDINGS: 1. Left ventricular chamber size is within normal limits. Left ventricular systolic function is normal. Overall ejection fraction estimated at 65%. 2. Left atrium, right atrium, and right ventricular chamber sizes are within normal limits. 3. Valvular structures have normal structure and motion. 4. Doppler interrogation reveals mild mitral regurgitation, trace tricuspid regurgitation, no other valvular insufficiency or stenosis. Pulmonary systolic ECHOCARDIOGRAM REPORT [id number] RDZ,WENDY R pressure is estimated at 50 mmHg. 5. No evidence of pericardial effusion or left ventricular thrombus. TRANSINT:[id number] Voice Confirmation ID: [id number] DOCUMENT ID: [id number] VALERY FERNANDES MD at 1039 CC: [id number] DICTATION DATE: 07/23/18 1214 SLIVER FORMER: 07/23/18 1413 DIS IN 07/24/18 [place] [id number] [place] [id number]
--- NOTE | 2018-07-25 10:39 | OP ---
PATIENT NAME: WENDY RDZ MEDICAL RECORD: [id number] :[birth year] LOCATION:D.M3 D.1204 ADMISSION DATE:07/20/18 SURGEON: VALERY PERALTA MD DATE OF OPERATION: 07/23/2018 PROCEDURES: 1. Left heart catheterization. 2. Selective coronary angiography. 3. Left ventriculogram. 4. IFR. INDICATION: Chest pain compatible with angina. PROCEDURE IN DETAIL: After informed consent was obtained and after a detailed description of the risks, benefits as well as alternative therapies, the patient elected to proceed with angiogram and heart catheterization. The right radial area was prepped and draped in normal sterile fashion. Right radial artery was cannulated via modified Seldinger technique with placement of 5-Occitan sheath. All catheters exchanged through this sheath. FINDINGS: The left ventriculogram was performed in standard 30-degree CORDOVA view, reveals good cardiac wall motion throughout all segments. Overall ejection fraction estimated 60%. SELECTIVE CORONARY ANGIOGRAPHY: 1. Left main is with no significant angiographic disease. 2. Left anterior descending has a questionable stenosis in the middle, however, IFR was 1.02. This was not hemodynamically and physiologically significant. 3. Left circumflex has moderate irregularities, but no flow-limiting stenosis. 4. Right coronary artery has moderate irregularities, but no flow-limiting stenosis. OVERALL IMPRESSION: No significant coronary artery disease is present. Chest pain is most likely pulmonary in etiology and noncardiac in etiology. TRANSINT:[id number] Voice Confirmation ID: [id number] DOCUMENT ID: [id number] VALERY PERALTA MD at 1039 CC: [id number] DICTATION DATE: 07/23/18 1153 AUTO WASH BUFFER: 07/23/18 1359 DIS IN 07/24/18 [place] [address]
--- NOTE | 2018-07-25 10:39 | CN ---
PATIENT NAME:WENDY COREY MEDICAL RECORD: [id number] : [birth year] LOCATION:D. D.1204 ADMIT DATE: 07/20/18 ACCOUNT: [id number] CONSULTING PHYSICIAN: VALERY PERALTA MD REFERRING PHYSICIAN: JEANMARIE DAUGHERTY MD DATE OF CONSULTATION: 07/22/2018 DIAGNOSES: 1. Elevated troponin, non-Q-wave myocardial infarction. 2. Coronary artery disease. 3. COPD. 4. Shortness of breath, dyspnea on exertion. 5. Tachycardia. 6. Hypertension. HISTORY: Mrs. Coery presents with 2-3 days prior of chest heaviness as well as increasing shortness of breath. She does have COPD; however, her troponin is elevated. She has continued to have episodes of chest pressure. She has had chest pressure this morning, has recurrent chest pressure as well. PHYSICAL EXAMINATION: GENERAL APPEARANCE: Well-nourished, well-developed, appears stated age. Level of distress, comfortable. PSYCHIATRIC: Mental status, alert, normal affect. Orientation, oriented to time, place and person. EYES: Lids and conjunctiva, noninjected. No discharge, no pallor. ENT: Lips, teeth, gums, normal dentition. Oropharynx, no cyanosis, no pallor. NECK: Carotid arteries, bilateral normal upstroke, no bruits, no thrills. JUGULAR VEINS: No jugular venous pressure or distention. CERVICAL LYMPH NODES: Nontender, nonenlarged. THYROID: Not enlarged. Nontender. No nodules. LUNGS: Respiratory effort, unlabored. CHEST: Normal curvature. No thoracic deformity. No chest wall tenderness. Percussion, resonant. Auscultation, clear. No wheezes, no rales, no rhonchi. CARDIOVASCULAR: Precordial exam, nondisplaced. No heaves or pericardial thrills. Rate and rhythm, regular. Heart sounds, normal S1, normal S2. No S3, no gallop, no rub. Systolic murmur, not heard. Diastolic murmur, not heard. EXTREMITIES: No cyanosis, no edema. Peripheral pulses, full and equal in all extremities, except as noted. No bruits appreciated. ABDOMEN: Soft, nondistended. Normal aorta. No bruit. Nontender. No masses. Liver, nontender, no hepatomegaly. Spleen, nontender, no splenomegaly. MUSCULOSKELETAL: No joint tenderness. No joint swelling. No erythema. NEUROLOGICAL: Normal gait, normal strength, normal tone. SKIN: Warm and dry. OVERALL IMPRESSION: Non-Q-wave myocardial infarction with continued episodes of chest pressure. She is quite tachycardic and mildly hypertensive. We will add Bystolic 10 mg to her medical regimen and give her aspirin and Plavix. We will reevaluate her in the morning. If she continues to have the episodes of chest pressure despite improvement in her heart rate and blood pressure, would consider coronary angiography. TRANSINT:[id number] Voice Confirmation ID: [id number] DOCUMENT ID: [id number] CONSULT REPORT [id number] WENDY COREY, VALERY KLEIN at 1039 CC: [id number] DICTATION DATE: 07/22/18 1250 FINAL INSPECTOR AND TESTER: 07/22/18 1545 DIS IN 07/24/18 [facility] [address] [place] [address]
--- NOTE | 2018-07-25 12:01 | MORECARE ---
CASE MANAGEMENT DISCHARGE SUMMARY PATIENT: WENDY COREY UNIT: [id number] ADM DATE: 07/20/18 AGE: 73 : [birth year] SEX: F ROOM/BED: D.1204 AUTHOR: PIYUSH RIOJAS PHYSICIAN: REFERRING PHYSICIAN: JEANMARIE DAUGHERTY MD DATE OF SERVICE: 07/25/18 Discharge Plan Patient Name: WENDY COREY Facility: [facility]:[place] : 1945 Planned Disposition: Home Anticipated Discharge Date: 07/23/18 Discharge Date: 07/24/2018 Expected LOS: 3 Initial Reviewer: [email or web address] Initial Review Date: 07/20/2018 Generated: 07/25/18 1:01 pm Comments DCP- Discharge Planning Updated by [email or web address]: Mely Avila on 07/24/18 1:[address] Patient Name: WENDY COREY Encounter No: [id number] : 1945 Primary Insurance: MEDICARE A & B Anticipated DC Date: 07-23-2018 Planned Disposition: Home External Planned Provider: : DCP follow-up note: Patient in agreement with discharge plan. No changes to plan. Cm met with patient and she denied dc needs at this time. IMM presented, explained, and signed by patient for discharge. Signed form placed in chart and signed form left with patient. Patient reports her family will be transporting her home. Case management will follow and assist as needed. Mely Avila RN, CCM Appended by Mely Avila on 07/24/2018 14:52 CDT: Verified with the patient that she has a nebulizer at home. DCP- Discharge Planning Updated by [email or web address]: Mely Avila on 07/20/18 3:[address] Patient Name: WENDY COREY Admission Status: ER Accout number: [id number] Admission Date: 07-20-2018 : 1945 Admission Diagnosis: Attending: JEANMARIE DAUGHERTY Current LOS: 1 Anticipated DC Date: 07-23-2018 Planned Disposition: Home Primary Insurance: MEDICARE A & B Discharge Planning Comments: CM met with patient to complete initial dc planning assessment. CM educated patient on the CM role and verbal consent given by patient to complete assessment. Patient lives at home with her . At discharge patient plans to return home and feels this is a safe discharge. CM discussed availability of home health, rehab services, and medical equipment. Patient denied known discharge needs at this time. CM will continue to follow and will assist as needed with dc plans/needs. Perinatal Tech: Mely Avila RN, [facility] DCPIA - Discharge Planning Initial Assessment Updated by [email or web address]: Mely Avila on 07/20/18 4:28 pm * Is the patient Alert and Oriented? Yes * How many steps to enter\exit or inside your home? * PCP Dr. Anaya * Pharmacy [facility] in [place] * Preadmission Environment Home with Family * ADLs Independent * Equipment Cane Nebulizer Oxygen * Other Equipment [employer] is O2 supplier. Patient also has portable oxygen. This was set up by [employer] on 07/19/18. * List name and contact numbers for known caregivers / representatives who currently or will assist patient after discharge: Delfin Corey - spouse - [phone] * Verbal permission to speak to the caregivers and representatives has been obtained from the patient. Yes * Community resources currently utilized None * Additional services required to return to the preadmission environment? No * Can the patient safely return to the preadmission environment? Yes * Has this patient been hospitalized within the prior 30 days at any hospital? No Coverage Notice Reviewer: [email or web address] - Mely Avila Notice Issued Date-Time: 07/24/2018 13:05 Notice Type: IM Discharge Notice Notice Delivered To: Patient Relationship to Patient: Consulting Intern Name: Delivery Method: HAND - Hand Delivered Yaneth Days: Prior Verbal Notification: Recipient Understood Notice: Recipient Signature: Med Rec Note Co-signed by Attending: Coverage Notice Comment: Last DP export: 07/24/18 1:58 p Patient Name: WENDY COREY Page 51442 at 1201 All edits/amendments must be made on the electronic document DICTATION DATE: 07/25/18 1200 BUILDING OFFICIAL: CORRIE 07/25/18 1200 RPT#: [id number] DC DATE:07/24/18 STATUS: DIS IN [facility] [address] [place] [address] END OF REPORT
[2018-07-25 20:06] LABS: IGG SUBCLASS 1 251 mg/dL (248-810); IGG SUBCLASS 2 335 mg/dL (130-555); IGG SUBCLASS 3 84 mg/dL (15-102); IGG SUBCLASS 4 7 mg/dL (2-96); IMMUNOGLOBULIN G 630 mg/dL (700-1600)
[2018-08-04 12:09] LABS: IMMUNOGLOBULIN E 278 IU/mL (6-495)
== END 2018-07-24 18:17 | disposition home or self-care (01) | DRG 202 ==
LOC: D.ER 13:11 → D.EDHOLD 14:52 → D.M3 14:52
PROVIDERS: Emergency Medicine; Internal Medicine Interventional Cardiology; Internal Medicine Pulmonary Disease; ADMIT Internal Medicine Nephrology; ATTEND Internal Medicine Nephrology
PROC: B2151ZZ Fluoroscopy of Left Heart using Low Osmolar Contrast (ICD-10-PCS; 2018-07-23)
PROC: 4A023N7 Measurement of Cardiac Sampling and Pressure, Left Heart, Percutaneous Approach (ICD-10-PCS; 2018-07-23)
PROC: B2111ZZ Fluoroscopy of Multiple Coronary Arteries using Low Osmolar Contrast (ICD-10-PCS; principal; 2018-07-23 11:00)
DX: J20.9 Acute bronchitis, unspecified (principal); J44.1 Chronic obstructive pulmonary disease with (acute) exacerbation; J45.901 Unspecified asthma with (acute) exacerbation; F17.213 Nicotine dependence, cigarettes, with withdrawal; J96.11 Chronic respiratory failure with hypoxia; J44.0 Chronic obstructive pulmonary disease with (acute) lower respiratory infection; Z99.81 Dependence on supplemental oxygen; I10 Essential (primary) hypertension; J30.9 Allergic rhinitis, unspecified; I27.20 Pulmonary hypertension, unspecified

== ENCOUNTER 2018-08-29 16:41 | Inpatient (IN) | payer MEDICARE, OTHER ==
[~2018-08-29 16:41] MED LIST: BYSTOLIC5 MG PO; DOXYCYCLINE HY100 M2 PO; FLUTICASONE PRO16 GM NASAL; IPRAT-ALBUT 0.5-3 ML INH; MUCINEX DM ER1 EAC1 PO; OMNICEF300 MG PO; PREDNISONE10 MG PO; PROVENTIL/2.5 MG/3 M INH; SINGULAIR10 MG PO; TESSALON PERLE100 MG PO; TRELEGY ELLIPT1 EACH INH
[2018-08-29 17:23] LABS: BASOPHILS 0.7 % (0-2); EOSINOPHILS 2.4 % (0-7); HEMATOCRIT 44.1 % (36.0-48.0); HEMOGLOBIN 14.8 g/dL (12-16); IMMATURE GRANULOCYTES 0.5 % (0-5); LYMPHOCYTES 11.3 % (15-50); MCH 31.8 pg (26.0-34.0); MCHC 33.6 g/dL (31.0-37.0); MCV 94.8 fL (80.0-100.0); MEAN PLATELET VOLUME 10.7 fL (7.4-10.4); MONOCYTES 4.1 % (2-11); PLATELET COUNT 198 10x3/uL (130-400); RBC 4.65 10x6/uL (4.00-5.40); RDW 14.4 % (11.5-14.5); WBC 8.3 10x3/uL (4.8-10.8)
[2018-08-29 17:28] LABS: INR 1.02 (0.85-1.17); PROTIME 12.9 SECONDS (11.6-15.0)
[2018-08-29 17:29] LABS: APTT 32.1 SECONDS (22.8-39.4)
[2018-08-29 17:33] LABS: ALBUMIN 3.7 g/dL (3.4-5.0); ALKALINE PHOSPHATASE 67 U/L (46-116); ALT (SGPT) 26 U/L (10-68); BILIRUBIN - TOTAL 0.34 mg/dL (0.2-1.3); CALC OSMOLALITY 288 mosm/kg (275-300); CALCIUM 9.2 mg/dL (8.5-10.1); CARBON DIOXIDE 25.3 mmol/L (21.0-32.0); CHLORIDE - SERUM 108 mmol/L (98-107); CREATININE - SERUM 0.6 mg/dL (0.6-1.3); GLUCOSE 118 mg/dL (74-106); POTASSIUM - SERUM 4.1 mmol/L (3.5-5.1); PROTEIN - SERUM 7.3 g/dL (6.4-8.2); SODIUM 144 mmol/L (136-145); UREA NITROGEN 14 mg/dL (7-18); eGFR NON AFRICAN AMERICAN > 90 mL/min (90-120)
[2018-08-29 17:46] LABS: CKMB 2.5 U/L (0.0-3.6); CREATINE KINASE 92 UL (21-215); PRO BNP 882 pg/mL (0-125)
[2018-08-29 17:51] LABS: TROPONIN-I < 0.017 ng/mL (0.000-0.060)
--- NOTE | 2018-08-29 19:05 | NUR ---
PLAN OF CARE DISCUSSED WITH PT, PT VERBALIZES UNDERSTANDING, DENIES ANY NEEDS AT THIS TIME. RR EVEN AND UNLABORED, VSS. AT BEDSIDE.
--- NOTE | 2018-08-29 20:11 | NUR ---
PT GIVEN BLANKETS.
[2018-08-29] MEDS ORDERED: IPRAT-ALBUT 0.5-3 ML UPD (22:55)
[2018-08-29 23:13] VITALS: BMI 38.8
[2018-08-30 00:30] VITALS: BP 170/78
--- NOTE | 2018-08-30 03:22 | NUR ---
RESTING WITH EYES CLOSED, RESPERATIONS EVEN, NO S/S DISTRESS NOTED.
[2018-08-30 04:20] VITALS: BP 112/44
[2018-08-30 05:45] LABS: BASOPHILS 0 % (0-2); EOSINOPHILS 0.2 % (0-7); HEMATOCRIT 37.9 % (36.0-48.0); HEMOGLOBIN 12.5 g/dL (12-16); IMMATURE GRANULOCYTES 0.3 % (0-5); LYMPHOCYTES 11.1 % (15-50); MCH 31.2 pg (26.0-34.0); MCV 94.5 fL (80.0-100.0); MEAN PLATELET VOLUME 9.7 fL (7.4-10.4); MONOCYTES 5.2 % (2-11); NEUTROPHILS 83.2 % (40-80); PLATELET COUNT 232 10x3/uL (130-400); RBC 4.01 10x6/uL (4.00-5.40); WBC 6.4 10x3/uL (4.8-10.8)
[2018-08-30 06:14] LABS: ALKALINE PHOSPHATASE 51 U/L (46-116); ALT (SGPT) 22 U/L (10-68); BILIRUBIN - TOTAL 0.27 mg/dL (0.2-1.3); CALCIUM 8.5 mg/dL (8.5-10.1); CHLORIDE - SERUM 108 mmol/L (98-107); CREATININE - SERUM 0.6 mg/dL (0.6-1.3); GLUCOSE 133 mg/dL (74-106); POTASSIUM - SERUM 4.3 mmol/L (3.5-5.1); PROTEIN - SERUM 6.2 g/dL (6.4-8.2); SODIUM 142 mmol/L (136-145); eGFR NON AFRICAN AMERICAN > 90 mL/min (90-120)
[2018-08-30 06:16] LABS: CALC OSMOLALITY 286 mosm/kg (275-300); UREA NITROGEN 19 mg/dL (7-18)
--- NOTE | 2018-08-30 07:30 | NUR ---
ASSESSMENT COMPLETED. DENIES ANY NEEDS. ALERT AND ORIENTED. TELEMERTY SHOWS SR. 02 AT 2 L/M PER NC. IV TO RIGHT FA. WILL MONITOR
[2018-08-30 08:23] VITALS: BP 152/74
[2018-08-30 11:29] VITALS: BP 156/71
[2018-08-30 12:14] VITALS: BMI 38.7
[2018-08-30 15:58] VITALS: BP 133/67
--- NOTE | 2018-08-30 19:22 | NUR ---
PT SITTING IN CHAIR, 2L O2 NC. PT IS AAO, DENIES ANY NEEDS. NS IFUSING AT 75ML TO LEFT FOREARM 20G PT UP AD DOROTHEA. WILL CALL FOR ASSIST WHEN NEEDED. NAME AND DATE PLACED ON BOARD. WILL CPOC
[2018-08-30 20:00] VITALS: BP 152/82
[2018-08-31] VITALS (7 sets, daily range): BP systolic 133–158; BP diastolic 57–63
--- NOTE | 2018-08-31 03:33 | NUR ---
REST IN BED, RESP EVEN, NO S/S OF DISTRESS. CONTINUE PLAN OF CARE.
--- NOTE | 2018-08-31 10:35 | NUR ---
PT ALERT X 4. BREATH SOUND CLEAR BILAT, 2L O2 PER NC. TELEMETRY IN PLACE. IV TO LEFT FOREARM, SALINE LOCKED. BED LOW, CALL LIIGHT IN REACH. NO OTHER NEEDS AT THIS TIME.
--- NOTE | 2018-08-31 17:32 | MORECARE ---
CASE MANAGEMENT DISCHARGE SUMMARY PATIENT: WENDY RDZ UNIT: [id number] ADM DATE: 08/29/18 AGE: 73 : 43 SEX: F ROOM/BED: D.2131 AUTHOR: PIYUSH RIOJAS PHYSICIAN: REFERRING PHYSICIAN: JEANMARIE DAUGHERTY MD DATE OF SERVICE: 08/31/18 Discharge Plan Patient Name: WENDY RDZ Facility: [facility]:[place] : 1945 Planned Disposition: Home Anticipated Discharge Date: Discharge Date: Expected LOS: Initial Reviewer: [email or web address] Initial Review Date: 08/31/2018 Generated: 08/31/18 6:32 pm Patient Name: WENDY RDZ Page 91568 at 1732 All edits/amendments must be made on the electronic document DICTATION DATE: 08/31/181730 PLASTERER JOURNEYMAN: CORRIE 08/31/181730 RPT#: [id number] DC DATE: STATUS: ADM IN [facility] [address] [place] [address] END OF REPORT
--- NOTE | 2018-08-31 17:41 | MORECARE ---
CASE MANAGEMENT DISCHARGE SUMMARY PATIENT: WENDY RDZ UNIT: [id number] ADM DATE: 08/29/18 AGE: 73 : 43 SEX: F ROOM/BED: D.2132 AUTHOR: BEULAH,DOC PHYSICIAN: REFERRING PHYSICIAN: JEANMARIE DAUGHERTY MD DATE OF SERVICE: 08/31/18 Discharge Plan Patient Name: WENDY RDZ Facility: [facility]:[place] : 1945 Planned Disposition: Home Anticipated Discharge Date: Discharge Date: Expected LOS: Initial Reviewer: [email or web address] Initial Review Date: 08/31/2018 Generated: 08/31/18 6:40 pm Comments DCP- Discharge Planning Updated by [email or web address]: Yaakov Mesa on 08/31/18 4:[address] Patient Name: WENDY RDZ Admission Status: ER Accout number: [id number] Admission Date: 08-29-2018 : 1945 Admission Diagnosis:SHORTNESS OF BREATH Attending: JEANMARIE DAUGHERTY Current LOS: 2 Anticipated DC Date: Planned Disposition: Home Primary Insurance: MEDICARE A & B Discharge Planning Comments: CM MET WITH PT IN ROOM TO DISCUSS DISCHARGE PLANNING AND NEEDS. PT REPORTS LIVING AT HOME INDEPENDENTLY WITH HER SPOUSE. PT HAS CANE, NEBULIZER AND HOME OXYGEN SHE USES AT NIGHT ONLY; MEDICAL EQUIPMENT PROVIDER IS [employer]. PT HAS NO OUTSIDE SERVICES ASSISTING IN THE HOME. CM DISCUSSED AVAILABILITY OF HOME HEALTH, REHAB SERVICES AND MEDICAL EQUIPMENT. PT DENIES DISCHARGE NEEDS, REPORTS HER SPOUSE WILL PICK HER UP FOR DISCHARGE HOME. PT PLANS TO DISCHARGE HOME WITH SPOUSE. PT HAS NO ANTICIPATED NEEDS. SPOUSE TO TRANSPORT HOME. CM TO FOLLOW AND ASSIST IF NEEDED. Human Resources Consultant: Yaakov Mesa DCPIA - Discharge Planning Initial Assessment Updated by [email or web address]: Yaakov Mesa on 08/31/18 5:33 pm * Is the patient Alert and Oriented? Yes * How many steps to enter\exit or inside your home? 3 W/RAILS * PCP DR JOINER * Pharmacy [facility] IN [place] * Preadmission Environment Home with Family * ADLs Independent * Equipment Cane Nebulizer Oxygen * Other Equipment [employer] - MEDICAL EQUIPMENT PROVIDER * List name and contact numbers for known caregivers / representatives who currently or will assist patient after discharge: CHRISTINA RDZ, SPOUSE, * Verbal permission to speak to the caregivers and representatives has been obtained from the patient. N/A * Community resources currently utilized None * Please name any agencies selected above. NONE * Additional services required to return to the preadmission environment? No * Can the patient safely return to the preadmission environment? Yes * Has this patient been hospitalized within the prior 30 days at any hospital? Yes Last DP export: 08/31/18 4:32 pm Patient Name: WENDY RDZ Page 66716 at 1741 All edits/amendments must be made on the electronic document DICTATION DATE: 08/31/181739 TOUR OPERATOR: CORRIE 08/31/181739 RPT#: [id number] DC DATE: STATUS: ADM IN [facility] [address] [place] [address] END OF REPORT
[2018-08-31 18:09] LABS: APPEARANCE CLEAR (CLEAR); COLOR YELLOW (YELLOW)
[2018-08-31 18:10] LABS: BILIRUBIN NEGATIVE (NEGATIVE); GLUCOSE NEGATIVE (NEGATIVE); KETONE NEGATIVE (NEGATIVE); NITRITE NEGATIVE (NEGATIVE); PROTEIN NEGATIVE (NEGATIVE); UROBILINOGEN NORMAL (NORMAL)
--- NOTE | 2018-08-31 19:41 | NUR ---
RECEIVED REPORT, WILL ASSUME CARE OF PT, DENIES ANY NEEDS, HOPING TO GET TO GO HOME TOMORROW, BED IS LOW, SRX2, CALL LIGHT IN REACH, WILL CONTINUE PLAN OF CARE
--- NOTE | 2018-09-01 02:23 | NUR ---
I have reviewed this patient and I concur with the Shift Assessment completed by the Licensed Practical Nurse today this shift.
[2018-09-01 04:00] VITALS: BP 118/67
--- NOTE | 2018-09-01 07:00 | NUR ---
RECEIVED REPORT. ASSUMED CARE OF PATIENT. CALL LIGHT WITHIN REACH. PATIENT WITH EYES CLOSED, EASILY AROUSED. RESP EVEN AND UNLABORED. IV FLUIDS INFUSING AT KVO. DENIES NEEDS. NO DISTRESS.
[2018-09-01 07:08] LABS: BASOPHILS 0 % (0-2); EOSINOPHILS 0 % (0-7); HEMATOCRIT 42.1 % (36.0-48.0); HEMOGLOBIN 14.3 g/dL (12-16); IMMATURE GRANULOCYTES 0.5 % (0-5); LYMPHOCYTES 10.4 % (15-50); MCH 31.6 pg (26.0-34.0); MCV 93.1 fL (80.0-100.0); MEAN PLATELET VOLUME 9.8 fL (7.4-10.4); MONOCYTES 5.7 % (2-11); NEUTROPHILS 83.4 % (40-80); PLATELET COUNT 245 10x3/uL (130-400); RBC 4.52 10x6/uL (4.00-5.40); RDW 13.7 % (11.5-14.5); WBC 11.1 10x3/uL (4.8-10.8)
[2018-09-01 07:13] LABS: ANION GAP 12.4 mmol/L (8-16); CALCIUM 8.8 mg/dL (8.5-10.1); CARBON DIOXIDE 26.6 mmol/L (21.0-32.0); CREATININE - SERUM 0.8 mg/dL (0.6-1.3)
[2018-09-01 08:10] VITALS: BP 158/86
--- NOTE | 2018-09-01 11:14 | NUR ---
CALLED PHARMACY AND SPOKE TO RUFINO TO NOTIFY HER THAT THIS [facility] HAS BEEN WAITING ON CEFEPIME TO BE BROUGHT TO UNIT AND IT IS STILL NOT AVAILABLE. RUFINO SAID OK. MED TO UNIT SOON.
[2018-09-01 11:40] VITALS: BP 135/59
--- NOTE | 2018-09-01 13:38 | NUR ---
CALLED AND SPOKE WITH ROHAN FROM PHARMACY. STILL DO NOT HAVE CEFEPIME
[2018-09-01 16:10] VITALS: BP 149/67
[2018-09-01 20:00] VITALS: BP 165/69
--- NOTE | 2018-09-01 20:43 | NUR ---
RECIEVED LAYING IN BED WITH EYES OPEN AND TV N. ALERT AND ORIENTED X4. UP AD DOROTHEA TO B/R. O2@ 2 LITERS PER N/C IN PLACE. IV TO LEFT FA WITH NS AT KVO. TELEMETRY IN PLACE. LUNG SOUNDS DIMINISHED. NO EDEMA OBSERVED. TELEMETRY IN PLACE. DENIES ANY NEEDS AT THIS TIME.
[2018-09-02] VITALS: BP 135/42
[2018-09-02 04:00] VITALS: BP 159/88
[2018-09-02 06:19] LABS: BASOPHILS 0 % (0-2); EOSINOPHILS 0 % (0-7); HEMATOCRIT 43.3 % (36.0-48.0); HEMOGLOBIN 14.9 g/dL (12-16); IMMATURE GRANULOCYTES 0.7 % (0-5); LYMPHOCYTES 9.9 % (15-50); MCH 32.3 pg (26.0-34.0); MCHC 34.4 g/dL (31.0-37.0); MCV 93.7 fL (80.0-100.0); MEAN PLATELET VOLUME 10.4 fL (7.4-10.4); MONOCYTES 5.2 % (2-11); NEUTROPHILS 84.2 % (40-80); PLATELET COUNT 255 10x3/uL (130-400); RBC 4.62 10x6/uL (4.00-5.40); RDW 13.9 % (11.5-14.5); WBC 10.7 10x3/uL (4.8-10.8)
[2018-09-02 07:49] LABS: ANION GAP 15.4 mmol/L (8-16); CALCIUM 8.5 mg/dL (8.5-10.1); CARBON DIOXIDE 23.6 mmol/L (21.0-32.0); CREATININE - SERUM 0.9 mg/dL (0.6-1.3)
[2018-09-02 08:36] VITALS: BP 156/64
--- NOTE | 2018-09-02 08:53 | NUR ---
PT RESTING IN BED, SHIFT ASSESSMENT PERFORMED. DENIES ANY NEEDS AT THIS TIME, WILL CONT TO FOLLOW POC
[2018-09-02] MEDS ORDERED: PULMICORT0.5 MG/21 UPD (10:55)
[2018-09-02] MEDS ORDERED: VIBRAMYCIN 100100 MG PO (10:55)
[2018-09-02] MEDS ORDERED: OMNICEF300 MG PO (10:55)
[2018-09-02] MEDS ORDERED: Tessalon Perle PO (10:56)
[2018-09-02] MEDS ORDERED: PREDNISONE10 MG PO (10:57)
[2018-09-02 11:41] VITALS: BP 142/71
[2018-09-02] MEDS ORDERED: SINGULAIR10 MG PO (12:12)
[2018-09-02] MEDS ORDERED: TRELEGY ELLIPT1 EACH INH (12:12)
--- NOTE | 2018-09-02 12:13 | NUR ---
PT USES [facility], THEY ARE CLOSED TODAY. RX'S CALLED TO [facility], SPOKE TO MOOKIE, PHARMACIST.
--- NOTE | 2018-09-02 14:08 | NUR ---
DISCHARGE INSTRUCTIONS REVIEWED WITH PT AND ALL QUESTIONS ANSWERED. PIV REMOVED WITH CATHETER TIP INTACT. TELEMETRY REMOVED AND GIVEN TO LASER OPERATOR. ASSISTED PT TO FRONT OF THE HOSPITAL VIA WHEELCHAIR. PT LEFT WITH FAMILY
--- NOTE | 2018-09-02 17:30 | MORECARE ---
CASE MANAGEMENT DISCHARGE SUMMARY PATIENT: WENDY RDZ UNIT: [id number] ADM DATE: 08/29/18 AGE: 73 : 43 SEX: F ROOM/BED: D.6370 AUTHOR: BEULAH,DOC PHYSICIAN: REFERRING PHYSICIAN: JEANMARIE DAUGHERTY MD DATE OF SERVICE: 09/02/18 Discharge Plan Patient Name: WENDY RDZ Facility: [facility]:[place] : 1945 Planned Disposition: Home Anticipated Discharge Date: Discharge Date: 09/02/2018 Expected LOS: Initial Reviewer: [email or web address] Initial Review Date: 08/31/2018 Generated: 09/02/18 6:29 pm Comments DCP- Discharge Planning Updated by [email or web address]: Yaakov Mesa on 08/31/18 4:[address] Patient Name: WENDY RDZ Admission Status: ER Accout number: [id number] Admission Date: 08-29-2018 : 1945 Admission Diagnosis:SHORTNESS OF BREATH Attending: JEANMARIE DAUGHERTY Current LOS: 2 Anticipated DC Date: Planned Disposition: Home Primary Insurance: MEDICARE A & B Discharge Planning Comments: CM MET WITH PT IN ROOM TO DISCUSS DISCHARGE PLANNING AND NEEDS. PT REPORTS LIVING AT HOME INDEPENDENTLY WITH HER SPOUSE. PT HAS CANE, NEBULIZER AND HOME OXYGEN SHE USES AT NIGHT ONLY; MEDICAL EQUIPMENT PROVIDER IS [employer]. PT HAS NO OUTSIDE SERVICES ASSISTING IN THE HOME. CM DISCUSSED AVAILABILITY OF HOME HEALTH, REHAB SERVICES AND MEDICAL EQUIPMENT. PT DENIES DISCHARGE NEEDS, REPORTS HER SPOUSE WILL PICK HER UP FOR DISCHARGE HOME. PT PLANS TO DISCHARGE HOME WITH SPOUSE. PT HAS NO ANTICIPATED NEEDS. SPOUSE TO TRANSPORT HOME. CM TO FOLLOW AND ASSIST IF NEEDED. Order Entry: Yaakov Mesa DCPIA - Discharge Planning Initial Assessment Updated by [email or web address]: Yaakov Mesa on 08/31/18 5:33 pm * Is the patient Alert and Oriented? Yes * How many steps to enter\exit or inside your home? 3 W/RAILS * PCP DR JOINER * Pharmacy [facility] IN [place] * Preadmission Environment Home with Family * ADLs Independent * Equipment Cane Nebulizer Oxygen * Other Equipment [employer] - MEDICAL EQUIPMENT PROVIDER * List name and contact numbers for known caregivers / representatives who currently or will assist patient after discharge: CHRISTINA RDZ, SPOUSE, * Verbal permission to speak to the caregivers and representatives has been obtained from the patient. N/A * Community resources currently utilized None * Please name any agencies selected above. NONE * Additional services required to return to the preadmission environment? No * Can the patient safely return to the preadmission environment? Yes * Has this patient been hospitalized within the prior 30 days at any hospital? Yes Coverage Notice Reviewer: [id number] Akila Stauffer Notice Issued Date-Time: 09/02/2018 11:45 Notice Type: IM Discharge Notice Notice Delivered To: Patient Relationship to Patient: Self Film And Video Graphics Designer Name: Delivery Method: HAND - Hand Delivered Yaneth Days: Prior Verbal Notification: Recipient Understood Notice: Yes Recipient Signature: Yes Med Rec Note Co-signed by Attending: Coverage Notice Comment: Last DP export: 08/31/18 4:40 pm Patient Name: WENDY RDZ Page [id number] at 1730 All edits/amendments must be made on the electronic document DICTATION DATE: 09/02/181728 ESOL TEACHER: CORRIE 09/02/181728 RPT#: [id number] DC DATE:09/02/18 STATUS: DIS IN [facility] [address] [place] [address] END OF REPORT
== END 2018-09-02 14:16 | disposition home or self-care (01) | DRG 189 ==
LOC: D.ER 16:41 → D.M2 21:10
PROVIDERS: Emergency Medicine; Family Medicine; ADMIT Internal Medicine Nephrology; ATTEND Internal Medicine Nephrology
DX: J96.21 Acute and chronic respiratory failure with hypoxia (principal); J44.1 Chronic obstructive pulmonary disease with (acute) exacerbation; J44.0 Chronic obstructive pulmonary disease with (acute) lower respiratory infection; R04.2 Hemoptysis; D80.3 Selective deficiency of immunoglobulin G [IgG] subclasses; I10 Essential (primary) hypertension; F41.9 Anxiety disorder, unspecified; I27.20 Pulmonary hypertension, unspecified; J20.9 Acute bronchitis, unspecified; I08.1 Rheumatic disorders of both mitral and tricuspid valves

== ENCOUNTER → 2018-09-28 14:34 | Outpatient (CLI) | payer MEDICARE, OTHER ==
[2018-08-30 12:14] VITALS: BMI 38.7
[~2018-09-28 14:34] MED LIST changes: +IPRAT-ALBUT 0.5-3 ML UPD; +PULMICORT0.5 MG/21 UPD; +Tessalon Perle PO; +VIBRAMYCIN 100100 MG PO
== END | disposition home or self-care (01) ==
LOC: D.RT 14:34
PROVIDERS: ATTEND Internal Medicine Pulmonary Disease
DX: J44.9 Chronic obstructive pulmonary disease, unspecified (principal)